=== PATIENT | female | born 1990 | race Hispanic/Latino ===

== ENCOUNTER 2020-10-16 13:27 | Emergency (ER) | payer SELFPAY ==
[2020-10-16 14:19] LABS: BASOPHILS % (AUTO) 0.3 % (0.0-5.0); EOSINOPHILS % (AUTO) 0.7 % (0.0-8.0); HEMATOCRIT 41.2 % (36-48); MEAN CORPUSCULAR HEMOGLOBIN 27.1 pg (27.0-33.0); MEAN CORPUSCULAR VOLUME 84.6 fL (79-99); MONOCYTES % (AUTO) 4.1 % (3.0-13.0); NEUTROPHILS % (AUTO) 78.5 % (40.0-77.0); PLATELET COUNT (AUTO) 320 K/uL (130-400); RED BLOOD CELL COUNT(AUTO) 4.87 MIL/uL (4.00-5.50); RED CELL DISTRIBUTION WIDTH 13.6 % (11.0-15.5); WHITE BLOOD COUNT (AUTO) 13.4 K/uL (4.8-10.8)
[2020-10-16 14:41] LABS: CREATININE 0.9 mg/dL (0.5-1.5); POTASSIUM 3.9 mmol/L (3.5-5.1)
[2020-10-16 14:45] LABS: ALBUMIN 3.6 g/dL (3.5-5.0); BILIRUBIN,TOTAL 0.4 mg/dL (0.2-1.0); TOTAL PROTEIN, SERUM 8.3 g/dL (6.0-8.3)
[2020-10-16 14:59] LABS: APPEARANCE,URINE Turbid (CLEAR); BILIRUBIN,URINE Negative (NEGATIVE); COLOR,URINE Dark Yellow (YELLOW); GLUCOSE, URINE (UA) Negative (NEGATIVE); KETONES,URINE Trace mg/dL (NEGATIVE); LEUKOCYTE ESTERASE ,URINE Trace (NEGATIVE); NITRATE,URINE Negative (NEGATIVE); OCCULT BLOOD,URINE Large (NEGATIVE); PROTEIN,URINE POS 1+ mg/dL (NEGATIVE)
[2020-10-16 15:02] LABS: HCG,QUAL RESULT NEGATIVE (NEGATIVE)
[2020-10-16 15:11] LABS: AMORPHOUS SEDIMENT,UR Many /LPF (None Seen); BACTERIA,URINE Few /HPF (None Seen); MUCUS,URINE Few LPF (None Seen); SQUAMOUS EPITHELIAL CELL,UR 0-2 /HPF (0-2)
[2020-10-16] MEDS ORDERED: KETOROLAC TROMETHAMINE 30MG/ML ONE (15:37)
[2020-10-16] MEDS ORDERED: SODIUM CHLORIDE 0.9% 1000ML 1,000 ML IV ONE (15:37)
[2020-10-16] MEDS ORDERED: MORPHINE SULFATE 4 MG/1ML SYG ONE (16:35)
[2020-10-16] MEDS ORDERED: IOHEXOL 350 MG/ML 100ML INFUS..BTL IV ONE (16:49)
[2020-10-16] MEDS ORDERED: KETOROLAC TROMETHAMINE 15MG/ML ONE (19:38)
== END 2020-10-16 19:56 | disposition home or self-care (01) ==
LOC: EDH 13:27
DX: N93.8 Other specified abnormal uterine and vaginal bleeding (principal); R10.2 Pelvic and perineal pain; R11.2 Nausea with vomiting, unspecified
CPT/HCPCS: 36415; 74178; 76830; 80053; 81001; 81025; 83690; 85014; 85018; 85025; 96374; 96375; 96376; 99285; J1885 ×2; J2270; J7030; Q9967

== ENCOUNTER 2022-09-05 16:57 | Emergency (ER) | payer OTHER, SELFPAY ==
[~2022-09-05] VITALS: Ht 152.4 cm; Wt 102.5 kg
[2022-09-05 17:30] LABS: BASOPHILS % (AUTO) 0.3 % (0.0-5.0); EOSINOPHILS % (AUTO) 2.4 % (0.0-8.0); HEMATOCRIT 43.7 % (36-48); LYMPHOCYTES % (AUTO) 20.4 % (21.0-51.0); MEAN CORPUSCULAR HEMOGLOBIN 26.4 pg (27.0-33.0); MONOCYTES % (AUTO) 7.1 % (3.0-13.0); NEUTROPHILS % (AUTO) 69.3 % (40.0-77.0); PLATELET COUNT (AUTO) 149 K/uL (130-400); RED BLOOD CELL COUNT(AUTO) 5.46 MIL/uL (4.00-5.50); RED CELL DISTRIBUTION WIDTH 14.1 % (11.0-15.5); WHITE BLOOD COUNT (AUTO) 6.4 K/uL (4.8-10.8)
[2022-09-05] MEDS ORDERED: 0.9%NACL 1000ML 1,000 ML IV ONE (17:30)
[2022-09-05] MEDS ORDERED: IBUPROFEN 600 MG TABLET PO ONE (17:30)
[2022-09-05 18:13] LABS: CREATININE 0.8 mg/dL (0.5-1.5); POTASSIUM 3.6 mmol/L (3.5-5.1)
[2022-09-05 18:19] LABS: ALBUMIN 3.4 g/dL (3.5-5.0); TOTAL PROTEIN, SERUM 8.7 g/dL (6.0-8.3)
[2022-09-05] MEDS ORDERED: AZIT500T4 PO (18:43)
[2022-09-05] MEDS ORDERED: PRED20TA3 PO (18:43)
[2022-09-05] MEDS ORDERED: ALBU2SYR3 PO (18:43)
[2022-09-05] MEDS ORDERED: CEFTRIAXONE 1G VIAL IVP ONE (19:00)
[2022-09-05 19:03] VITALS: BP 137/82
[2022-09-05] MEDS ORDERED: DiphenhydrAMINE HCL 50 MG/ML VIAL IV ONE (19:30)
[2022-09-05] MEDS ORDERED: DEXAMETHASONE SOD PHOSPHATE 4 MG/ML 1ML VIAL IV ONE (19:30)
[2022-09-05] MEDS ORDERED: FAMOTIDINE 20MG VIAL IV ONE (19:30)
== END 2022-09-05 20:00 | disposition home or self-care (01) ==
LOC: EDH 16:57
DX: J18.9 Pneumonia, unspecified organism (principal); E11.9 Type 2 diabetes mellitus without complications; Z20.822 Contact with and (suspected) exposure to COVID-19; Z90.89 Acquired absence of other organs; Z79.899 Other long term (current) drug therapy
CPT/HCPCS: 99285; 96374; 96375; 71045; 87635; 96361; 80053; 85025; 87880; 87804 ×2; 83605; 36415; 93005; J1100; C9803; J1200; J3490; J7030; J0696